=== PATIENT | female | born 1990 | race Caucasian/White ===

== ENCOUNTER 2016-11-10 16:10 | Emergency (ER) | payer OTHER ==
[~2016-11-10] VITALS: Ht 162.6 cm; Wt 83.9 kg
[2016-11-10] MEDS ORDERED: PROCHLORPERAZINE INJ 10 MG/2 ML VIAL IV PUSH STA (16:59)
[2016-11-10] MEDS ORDERED: LACTATED RINGER'S 1000 ML INJ 1,000 ML IV ONE (17:00)
[2016-11-10] MEDS ORDERED: NON-FORMULARY DRUG IM ONE (17:30)
--- NOTE | 2016-11-10 17:51 | PD ---
HPI Chief Complaint Migraine headaches Date Seen: Nov 10, 2016 Time Seen: 16:45 Travel History International Travel<30 Days: No Contact w/Intl Traveler<30Days: No Known Affected Area: No History of Present Illness HPI 7 no 28 weeks and 4 days complains of migraine headaches and chest today. Patient states she's had migraines prior to which was treated effectively with Imitrex. Patient states that during her she has taken Tylenol with good results until today migraines are coming bilateral sensitivity and mild nausea. Para: 0 : 1 History Past Medical History Narrative Medical Surgically hypothyroid Past Surgical History Narrative Surgical Complete thyroidectomy Subdural hematoma at 4 years old with surgical drainage Tonsils and adenoids Allergies-Medications (Allergen,Severity, Reaction): Coded Allergies: Bee Sting (Verified Allergy, Severe, 11/10/16) Lortab (Verified Allergy, Severe, 11/10/16) Neomycin (Verified Allergy, Severe, 11/10/16) Nubain (Verified Allergy, Severe, 11/10/16) Narrative Medication Levothyroxine 75 MCG's daily Protonix 40 mg daily Phenergan and Zantac as necessary, vitamins Review of Systems Except as stated in HPI: all other systems reviewed are Neg Physical Exam Narrative GENERAL: Well-nourished, well-developed patient. SKIN: Warm and dry. HEAD: Normocephalic and atraumatic. EYES: No scleral icterus. No injection or drainage. ENT: No nasal drainage noted. Mucous membranes pink. Airway patent. NECK: Supple, trachea midline. No JVD. CARDIOVASCULAR: Regular rate and rhythm without murmurs, gallops, or rubs. RESPIRATORY: Breath sounds equal bilaterally. No accessory muscle use. BREASTS: Bilateral exam showed no masses , no retractions, no nipple discharge. ABDOMEN/GI: Abdomen soft, non-tender, bowel sounds present, no rebound, no guarding Gravid to [-28] weeks size Fundal Height: [-] GENITOURINARY: External Genitalia: intact and normal in appearance BUS glands: [-nl] cervix not checked Cervix: [-] Dilatation: [-] Effacement: [-] Station: [-] Presentation: [-] Membranes: [intact or ruptured] Uterine Contractions: [-] FHT's: Category: [-1] Baseline: [-140] Reactive: [-mod] Variability: [-mod] Decels: [-absent] EXTREMITIES: No cyanosis or edema. BACK: Nontender without obvious deformity. No CVA tenderness. NEUROLOGICAL: Awake and alert. Motor and sensory grossly within normal limits. Five out of 5 muscle strength in all muscle groups. Normal speech. Patient is much improved after phenergan and IV hydration, desires to go home. Data Data Orders Vital Signs (Adult) .ON ADMISSION (11/10/16 16:59) ^ Labor Status (11/10/16 16:59) Lactated Ringer's 1000 Ml Inj (Lr 1000 M (11/10/16 17:00) Non-Formulary Drug (11/10/16 17:30) MDM Medical Record Reviewed: Yes Plan 28-29 weeks gestation with migraine, improved with hydration and phenergan Discharge home with follow up to OB provider Diagnosis Diagnosis: Primary Impression: 28 weeks gestation of Additional Impression: Migraine headache without aura Disposition: 01 DISCHARGE HOME Cielo Bill MD Nov 10, 2016 17:51
== END 2016-11-10 18:19 | disposition home or self-care (01) ==
LOC: HOBED 16:10
DX: O26.893 Other specified pregnancy related conditions, third trimester (principal); G43.009 Migraine without aura, not intractable, without status migrainosus; Z3A.28 28 weeks gestation of pregnancy
CPT/HCPCS: 99284; J7120

== ENCOUNTER 2016-12-28 00:19 | Inpatient (IN) | payer OTHER ==
[2016-12-28] VITALS (46 sets, daily range): BP systolic 92–151; BP diastolic 54–117; PULSE 72–125; RESP 16–20; TEMP 97.4–98.8
[~2016-12-28] VITALS: Ht 162.6 cm; Wt 87.5 kg
[2016-12-28] MEDS ORDERED: LACTATED RINGER'S 1000 ML INJ 1,000 ML IV PRN (00:53)
[2016-12-28] MEDS ORDERED: SODIUM CHLORID 0.9% 500 ML INJ 500 ML IV PRN (01:00)
[2016-12-28] MEDS ORDERED: MINERAL OIL 10 ML VIAL TOPICAL PRN (01:00)
[2016-12-28] MEDS ORDERED: LIDOCAINE HCL 1% 50 ML VIAL INFIL PRN (01:00)
[2016-12-28] MEDS ORDERED: PENICILLIN G POTASSIUM INJ 5,000,000 UNITS in SODIUM CHLORIDE 0.9% INJ 100 ML IV ONE (01:00)
[2016-12-28] MEDS ORDERED: OXYTOCIN 30 UNITS-500ML PREMIX 500 ML IV SCH ×2 (01:00→12:15)
[2016-12-28] MEDS ORDERED: CITRIC ACID-SODIUM CITRATE LIQ 30 ML UDC PO SCH (01:00)
[2016-12-28] MEDS ORDERED: OXYTOCIN 30 UNITS-500ML PREMIX 500 ML IV ONE ×2 (01:00→12:15)
[2016-12-28] MEDS ORDERED: LIDOCAINE HCL 1% 50 ML VIAL I-DERMAL PRN (01:00)
--- NOTE | 2016-12-28 01:04 | HHI.HP ---
HPI Chief Complaint Water broke Date Seen: Dec 28, 2016 Travel History International Travel<30 Days: No Contact w/Intl Traveler<30Days: No Known Affected Area: No History of Present Illness HPI Patient is 26-year-old white female at 35-1/[address] Choi for care complains of water breaking around 11:00 this evening. The denies bleeding, baby is active, heart rate tracing is reactive and she is scout irregularly and occasionally actually, she is not feeling any contractions this time. Patient has gross ruptured membranes on exam fluid flowing per vagina Para: 0 : 1 History Past Medical History Narrative Medical Patient had a thyroid goiter that enlarged and required thyroidectomy now is hypothyroid and takes replacement Past Surgical History Narrative Surgical Thyroidectomy Social History Alcohol Use: No Tobacco Use: No Substance Abuse: No Allergies-Medications (Allergen,Severity, Reaction): Coded Allergies: Bee Sting (Verified Allergy, Severe, 11/10/16) Lortab (Verified Allergy, Severe, 11/10/16) Neomycin (Verified Allergy, Severe, 11/10/16) Nubain (Verified Allergy, Severe, 11/10/16) Review of Systems General / Constitutional: No: Fever, Weight Gain, Chills, Other Eyes: No: Diploplia, Blurred Vision, Visual changes, Pain, Photophobia HENT: No: Headaches, Vertigo, Lightheadedness Cardiovascular: No: Irregular Rhythm, Chest Pain or Discomfort, Palpitations, Tachycardia, Syncope, Varicosities, Edema, Cyanosis Respiratory: No: Cough, Short of Breath, Other Gastrointestinal: No: Nausea, Vomiting, Diarrhea Genitourinary: No: Decreased Urinary Output, Oliguria Musculoskeletal: No: Limited ROM, Weakness, Cramping, Edema, Pain Skin: No Rash, No Itching, No Dryness, No Lumps, No Change in Pigmentation, No Change in Nails, No Alopecia, No Lesions Neurologic: No: Weakness, Dizziness, Syncope, Focal Abnormalities, Coordination Problem, Headache, Slurred Speech, Seizures Psychiatric: No: Depression, Suicidal Ideations, Homicidal Ideation Endocrine: No: Heat Intolerance, Cold Intolerance, Polydipsia, Polyuria, Other Physical Exam Narrative GENERAL: Well-nourished, well-developed patient. SKIN: Warm and dry. HEAD: Normocephalic and atraumatic. EYES: No scleral icterus. No injection or drainage. ENT: No nasal drainage noted. Mucous membranes pink. Airway patent. NECK: Supple, trachea midline. No JVD. CARDIOVASCULAR: Regular rate and rhythm without murmurs, gallops, or rubs. RESPIRATORY: Breath sounds equal bilaterally. No accessory muscle use. BREASTS: Bilateral exam showed no masses , no retractions, no nipple discharge. ABDOMEN/GI: Abdomen soft, non-tender, bowel sounds present, no rebound, no guarding Gravid to [-35] weeks size Fundal Height: [-35] GENITOURINARY: External Genitalia: intact and normal in appearance BUS glands: [-] Cervix: [Fingertip-] Dilatation: [-] Fingertip Effacement: [-] Thick Station: [-3] Presentation: [-vtx] Membranes: [ ruptured] grossly ruptured Uterine Contractions: [-Occasional] FHT's: Category: [-1] Baseline: [-133] Reactive: [-yes] Variability: [mod-] Decels: [-none] EXTREMITIES: No cyanosis or edema. BACK: Nontender without obvious deformity. No CVA tenderness. NEUROLOGICAL: Awake and alert. Motor and sensory grossly within normal limits. Five out of 5 muscle strength in all muscle groups. Normal speech. Data Data Orders Ob (2e) Additional Admit Info (12/28/16 00:55) Admit To Inpatient (12/28/16 ) Vital Signs (Adult) .Per protocol (12/28/16 00:53) Heart (12/28/16 00:53) Amnioinfusion (12/28/16 00:53) Urinary Catheter Management .ONCE (12/28/16 00:53) Lactated Ringer's 1000 Ml Inj (Lr 1000 M (12/28/16 00:53) Lactated Ringer's 1000 Ml Inj (Lr 1000 M (12/28/16 00:53) Sodium Chlorid 0.9% 500 Ml Inj (Ns 500 M (12/28/16 01:00) Sodium Chlor 0.9% 1000 Ml Inj (Ns 1000 M (12/28/16 01:13) Lidocaine 1% Inj (50 Ml) (Xylocaine 1% I (12/28/16 01:00) Citric Acid-Sodium Citrate Liq (Bicitra (12/28/16 01:00) Fentanyl Inj (Fentanyl Inj) (12/28/16 01:00) Fentanyl Inj (Fentanyl Inj) (12/28/16 01:00) Penicillin G Potassium Inj (Pfizerpen-G (12/28/16 01:00) Penicillin G Potassium Inj (Pfizerpen-G (12/28/16 05:00) Complete Blood Count With Diff (12/28/16 00:53) Hold Clot (12/28/16 00:53) Abo/Rh Blood Type (12/28/16 00:53) Urinalysis - C+S If Indicated (12/28/16 00:53) Type And Screen (12/28/16 00:53) Resp Oxygen Non Rebreathe Mask (12/28/16 ) ^ Epidural / Intrathecal Infus (12/28/16 00:53) Oxytocin 30 Units-500ml Premix (Pitocin (12/28/16 01:00) Lidocaine 1% Inj (50 Ml) (Xylocaine 1% I (12/28/16 01:00) Light Mineral Oil (Muri-Lube Oil) (12/28/16 01:00) ^ Non Stress Test (12/28/16 00:55) Response To Medication .Post New Med Administration, Reaction (12/28/16 00:55) ^ Discontinue Medication (12/28/16 00:55) Oxytocin 30 Units-500ml Premix (Pitocin (12/28/16 01:00) Assessment/Plan Assessment and Plan Patient is 26-year-old white female at 35-36 weeks with gross ruptured membranes , contractions are noted occasionally but patient is not in labor now cervix is fingertip thick and posterior, heart rate tracing is reactive Impression spontaneous ruptured membranes at 35-36 weeks Plan -begin Pitocin of labor augmentation and anticipate vaginal delivery, provide IV penicillin Jose Berg II, MD Dec 28, 2016 01:04
[2016-12-28] MEDS ORDERED: TIRO150C PO (01:06)
[2016-12-28] MEDS ORDERED: PEDI1TAB11 (01:07)
[2016-12-28] MEDS ORDERED: PROT40TA PO (01:10)
[2016-12-28] MEDS ORDERED: SODIUM CHLOR 0.9% 1000 ML INJ 1,000 ML IV PRN (01:13)
[2016-12-28] MEDS: LACTATED RINGER'S 1000 ML INJ 1,000 ML IV SCH ×2 (02:10→05:48)
[2016-12-28 02:20] LABS: BACTERIA, URINE RARE /hpf; BLOOD, URINE NEG (NEG); COMMENT (UR) CULT NOT INDICATED; CULTURE IF INDICATED CULT NOT INDICATED; GLUCOSE,URINE NEG (NEG); KETONE, URINE NEG (NEG); NITRITE,URINE NEG (NEG); PH, URINE 6.5 (5.0-8.5); URINE COLOR YELLOW (YELLW/STRAW)
[2016-12-28 02:28] LABS: AUTOMATED NEUTROPHIL # 11.2 TH/MM3 (1.8-7.7); BASOPHIL # 0.1 TH/MM3 (0-0.2); BASOPHIL % 0.4 % (0.0-2.0); EOSINOPHIL # 0.1 TH/MM3 (0-0.4); EOSINOPHIL % 0.8 % (0.0-4.0); HEMATOCRIT 37.4 % (35.0-46.0); HEMO FLAGS DIFF FINAL; LYMPH % 18.2 % (9.0-44.0); LYMPHOCYTE # 2.8 TH/MM3 (1.0-4.8); MEAN CELL VOLUME 83.7 FL (80.0-100.0); MEAN CORPUSCULAR HEMOGLOBIN 27.5 PG (27.0-34.0); MEAN CORPUSCULAR HGB CONC 32.8 % (32.0-36.0); MONO % 8.5 % (0.0-8.0); NEUT % 72.1 % (16.0-70.0); PLATELET COUNT 244 TH/MM3 (150-450); RED BLOOD COUNT 4.47 MIL/MM3 (4.00-5.30); RED CELL DISTRIBUTION WIDTH 13.5 % (11.6-17.2); WHITE BLOOD COUNT 15.6 TH/MM3 (4.0-11.0)
[2016-12-28] MEDS ORDERED: PENICILLIN G POTASSIUM INJ 2,500,000 UNITS in SODIUM CHLORIDE 0.9% INJ 100 ML IV SCH (05:00)
[2016-12-28] MEDS: PENICILLIN G POTASSIUM INJ 2,500,000 UNITS in SODIUM CHLORIDE 0.9% INJ 100 ML IV SCH ×2 (05:48→10:27)
[2016-12-28] MEDS ORDERED: ePHEDrine/NS 25 MG/5 ML SYR ONE (09:12)
[2016-12-28] MEDS ORDERED: fentaNYL 2MCG-BUPIV 0.125% INJ 100 ML ONE (09:12)
[2016-12-28] MEDS ORDERED: BUPIVACAINE HCL PF 0.25% 10 ML VIAL ONE (10:36)
--- NOTE | 2016-12-28 12:11 | PD.OB.DELI ---
Delivery Date: Dec 28, 2016 Anesthesia: Epidural Episiotomy: None Vaginal Delivery: Normal Presentation: Occiput anterior Nuchal Cord: None Delayed cord clamping (45 sec): Yes Infant: Male One Minute : 7 Five Minute : 8 Placenta: Spontaneous delivery, Intact, 3 vessel cord Laceration: Perineal laceration, 1 deg Estimated blood loss: 350 Additional Information Nice vaginal delivery of luann. Had the cord around the leg and was quite tight Small first degree laceration of the labia in the periclitoral area on the right Mom had Heelp after her delivery and she is concerned. Namrata Choi MD Dec 28, 2016 12:11
[2016-12-28] MEDS ORDERED: SODIUM CHLORIDE 0.9% FLUSH 10 ML FLUSH IV FLUSH PRN (12:15)
[2016-12-28] MEDS ORDERED: ONDANSETRON ODT 4 MG TAB PO PRN (12:15)
[2016-12-28] MEDS ORDERED: ALUMINUM/MAGNESIUM/SIMETH 30 ML CUP PO PRN (12:15)
[2016-12-28] MEDS ORDERED: ZOLPIDEM TARTRATE 5 MG TAB PO PRN (12:15)
[2016-12-28] MEDS ORDERED: ACETAMINOPHEN 325 MG TAB PO PRN (12:15)
[2016-12-28] MEDS ORDERED: BENZOCAINE 20% TOPICAL SPRAY 60 ML CAN TOPICAL PRN (12:15)
[2016-12-28] MEDS ORDERED: oxyCODONE/ACETAMINOPHEN 5 MG/325 MG TAB PO PRN ×2 (12:15)
[2016-12-28] MEDS ORDERED: WITCH HAZEL 50%/GLYCERIN 12.5% 40 PAD JAR TOPICAL PRN (12:15)
[2016-12-28 13:28] LABS: AMPHETAMINE, URINE NEG (NEG); BARBITURATES, URINE NEG (NEG); COCAINE, URINE NEG (NEG)
[2016-12-28 14:00] LABS: HEMATOCRIT 35.9 % (35.0-46.0); MEAN CELL VOLUME 84.1 FL (80.0-100.0); MEAN CORPUSCULAR HEMOGLOBIN 27.5 PG (27.0-34.0); MEAN CORPUSCULAR HGB CONC 32.7 % (32.0-36.0); PLATELET COUNT 228 TH/MM3 (150-450); RED BLOOD COUNT 4.26 MIL/MM3 (4.00-5.30); RED CELL DISTRIBUTION WIDTH 13.6 % (11.6-17.2); REVIEW FLAG FINAL; WHITE BLOOD COUNT 25.8 TH/MM3 (4.0-11.0)
[2016-12-28] MEDS ORDERED: DIPHTH/TETANUS/ACEL PERTUSSIS (BOOSTER) 0.5 ML VIAL/PFS IM ONE (16:00)
[2016-12-28] MEDS ORDERED: MEASLES, MUMPS, RUBELLA VACCINE 0.5 ML VIAL SQ ONE (16:00)
[2016-12-28] MEDS: IBUPROFEN 600 MG TAB PO PRN (16:35)
[2016-12-28] MEDS ORDERED: SODIUM CHLORIDE 0.9% FLUSH 10 ML FLUSH IV FLUSH SCH (21:00)
[2016-12-29] MEDS: IBUPROFEN 600 MG TAB PO PRN ×3 (00:53→19:56)
[2016-12-29] MEDS: DOCUSATE SODIUM 50 MG/SENNA 8.6 MG TAB PO PRN ×2 (00:54→19:56)
[2016-12-29 06:13] LABS: HEMATOCRIT 30.5 % (35.0-46.0); MEAN CELL VOLUME 84.9 FL (80.0-100.0); MEAN CORPUSCULAR HEMOGLOBIN 27.5 PG (27.0-34.0); MEAN CORPUSCULAR HGB CONC 32.4 % (32.0-36.0); PLATELET COUNT 187 TH/MM3 (150-450); RED BLOOD COUNT 3.59 MIL/MM3 (4.00-5.30); RED CELL DISTRIBUTION WIDTH 13.3 % (11.6-17.2); REVIEW FLAG FINAL; WHITE BLOOD COUNT 17.2 TH/MM3 (4.0-11.0)
[2016-12-29 08:30] VITALS: BP 122/72; PULSE 82; RESP 16; TEMP 98
--- NOTE | 2016-12-29 08:59 | HHI.OB ---
Subjective Post Day: 1 Objective Vitals/I&O Vital Signs Date Time Temp Pulse Resp B/P Pulse Ox O2 Delivery O2 Flow Rate FiO2 12/28/16 14:21 96 16 132/81 12/28/16 14:21 98.8 12/28/16 13:45 18 12/28/16 13:42 97.6 12/28/16 13:30 88 116/67 12/28/16 13:15 79 113/70 12/28/16 13:00 84 18 111/68 12/28/16 12:45 75 113/68 12/28/16 12:39 18 12/28/16 12:30 18 12/28/16 12:30 85 111/85 12/28/16 12:15 98.4 18 12/28/16 12:15 91 116/68 12/28/16 12:05 93 151/83 12/28/16 11:05 112 133/117 12/28/16 11:00 85 12/28/16 11:00 91 107/83 12/28/16 10:56 97.4 12/28/16 10:55 90 12/28/16 10:55 89 109/95 12/28/16 10:50 97 137/103 12/28/16 10:46 89 129/69 12/28/16 10:45 104 12/28/16 10:40 87 142/75 12/28/16 10:40 100 12/28/16 10:36 96 140/64 12/28/16 10:35 109 12/28/16 10:30 103 129/58 12/28/16 10:30 90 12/28/16 10:25 104 131/75 12/28/16 10:25 92 12/28/16 10:21 106 123/59 12/28/16 10:20 107 12/28/16 10:15 82 12/28/16 10:15 92 116/78 12/28/16 10:10 100 12/28/16 10:10 79 113/73 12/28/16 10:05 82 123/69 12/28/16 10:05 77 12/28/16 10:00 107 12/28/16 10:00 76 133/81 12/28/16 09:55 125 12/28/16 09:55 72 130/71 12/28/16 09:50 98 125/90 12/28/16 09:30 83 100/54 12/28/16 09:14 20 12/28/16 09:01 72 92/67 Objective Remarks GENERAL: Well-nourished, well-developed patient. CARDIOVASCULAR: Regular rate and rhythm without murmurs, gallops, or rubs. RESPIRATORY: Breath sounds equal bilaterally. No accessory muscle use. ABDOMEN/GI: Abdomen soft, non-tender. Fundus: Firm, non-tender at umbilicus. GENITOURINARY: Light to moderate bleeding. EXTREMITIES: No cyanosis or edema, non-tender, without signs of DVT. Medications and IVs Current Medications Medications (Trade) Dose Ordered Sig/Akira Route Start Time Stop Time Status Last Admin (NS Flush) 2 ml BID IV FLUSH 12/28/16 21:00 (NS Flush) 2 ml UNSCH PRN IV FLUSH 12/28/16 12:15 (Tylenol) 650 mg Q4H PRN PO 12/28/16 12:15 (Motrin) 600 mg Q6H PRN PO 12/28/16 12:15 12/29/16 08:45 (Percocet 5-325 Mg) 1 tab Q4H PRN PO 12/28/16 12:15 (Percocet 5-325 Mg) 2 tab Q4H PRN PO 12/28/16 12:15 (Americaine 20% Top Spr) 1 spray Q4H PRN TOPICAL 12/28/16 12:15 12/28/16 16:35 (Tucks Pads) 1 applic QID PRN TOPICAL 12/28/16 12:15 12/28/16 16:35 (No-Colace) 2 tab Q12H PRN PO 12/28/16 12:15 12/29/16 00:54 (Ambien) 5 mg HS PRN PO 12/28/16 12:15 (Mag-Al Plus Susp Liq) 15 ml Q8H PRN PO 12/28/16 12:15 (Zofran Odt) 4 mg Q6H PRN PO 12/28/16 12:15 Assessment/Plan Problem List: (1) Normal vaginal delivery Plan: routine (2) Anemia Plan: treat pp Assessment and Plan pt doing well up to shower this am c/o back pain, pain medication encouraged routine care Discharge Planning dc home in 1-2 days Jacklyn Horne Dec 29, 2016 08:58
[2016-12-29 23:00] VITALS: BP 117/94; PULSE 94; RESP 18; TEMP 98
[2016-12-30] MEDS: IBUPROFEN 600 MG TAB PO PRN (06:17)
[2016-12-30 09:00] VITALS: BP 108/78; PULSE 77; RESP 16; TEMP 98.8
--- NOTE | 2016-12-30 09:06 | HHI.OB ---
Subjective Post Operative Day: 2 Objective Vitals/I&O Vital Signs Date Time Temp Pulse Resp B/P Pulse Ox O2 Delivery O2 Flow Rate FiO2 12/29/16 23:00 98.0 94 18 117/94 Result Diagram: 12/29/16 0558 Objective Remarks GENERAL: Well-nourished, well-developed patient. CARDIOVASCULAR: Regular rate and rhythm without murmurs, gallops, or rubs. RESPIRATORY: Breath sounds equal bilaterally. No accessory muscle use. ABDOMEN/GI: Abdomen soft, non-tender, bowel sounds present. Incision: Clean, dry and intact. Fundus: Firm, non-tender at umbilicus. GENITOURINARY: Light to moderate bleeding. EXTREMITIES: No cyanosis or edema, non-tender, without signs of DVT. Medications and IVs Current Medications Medications (Trade) Dose Ordered Sig/Akira Route Start Time Stop Time Status Last Admin (NS Flush) 2 ml BID IV FLUSH 12/28/16 21:00 (NS Flush) 2 ml UNSCH PRN IV FLUSH 12/28/16 12:15 (Tylenol) 650 mg Q4H PRN PO 12/28/16 12:15 (Motrin) 600 mg Q6H PRN PO 12/28/16 12:15 12/30/16 06:17 (Percocet 5-325 Mg) 1 tab Q4H PRN PO 12/28/16 12:15 (Percocet 5-325 Mg) 2 tab Q4H PRN PO 12/28/16 12:15 (Americaine 20% Top Spr) 1 spray Q4H PRN TOPICAL 12/28/16 12:15 12/28/16 16:35 (Tucks Pads) 1 applic QID PRN TOPICAL 12/28/16 12:15 12/28/16 16:35 (No-Colace) 2 tab Q12H PRN PO 12/28/16 12:15 12/29/16 19:56 (Ambien) 5 mg HS PRN PO 12/28/16 12:15 (Mag-Al Plus Susp Liq) 15 ml Q8H PRN PO 12/28/16 12:15 (Zofran Odt) 4 mg Q6H PRN PO 12/28/16 12:15 Assessment/Plan Problem List: (1) Normal vaginal delivery Plan: routine (2) Anemia Plan: treat pp Assessment and Plan pt doing well back pain improved pain well controlled with oral pain mediation breast feeding routine care Discharge Planning dc home today Jacklyn Horne Dec 30, 2016 09:06
--- NOTE | 2016-12-30 09:07 | HHI.DCPOC ---
Discharge Care Plan Diagnosis: (1) Normal vaginal delivery (2) Anemia Your Health Problems Are: Vaginal delivery Report Symptoms to Your Doctor -Temperature above 100.5 degrees -Redness, of incision or excessive or foul smelling drainage -Unusual pain or calf pain -Increased vaginal bleeding -Painful or difficulty urinating -Feelings of extreme sadness or anxiety after 2 weeks Goals to Promote Your Health * To prevent worsening of your condition and complications * To maintain your health at the optimal level Directions to Meet Your Goals Take your medications as prescribed Follow your dietary instruction Follow activity as directed Ensure plenty of rest for recovery Drink fluids for hydration Keep your appointments as scheduled Take your immunizations and boosters as scheduled If your symptoms worsen call your PCP, if no PCP go to Urgent Care Center or Emergency Room Smoking is Dangerous to Your Health. Avoid second hand smoke Call the 24-hour crisis hotline for domestic abuse at Jacklyn Horne Dec 30, 2016 09:07
[2016-12-30] MEDS ORDERED: IBUP-232 PO (09:10)
--- NOTE | 2016-12-30 09:13 | HHI.DS ---
Admission Date Dec 28, 2016 at 00:55 Discharge Date: Dec 30, 2016 Admitting Diagnosis 35-36 week srom iup Diagnosis: (1) Normal vaginal delivery Diagnosis: Principal (2) Anemia Diagnosis: Secondary Delivery Date: Dec 28, 2016 Vaginal Delivery: Normal : Male Brief History 35-36 weeks srom clear fluid Hospital Course routine care Pt Condition on Discharge: Good Discharge Disposition: Discharge Home Discharge Instructions Diet Instructions: As Tolerated, No Restrictions Additional Diet Instructions: Drink at least 8 - 16 oz bottles of water a day Activities You Can Perform: Shower Only-No Bath, Sitz Bath Activities to Avoid: Lifting/Bending, Sexual Activity Additional Activity Instruc.: No driving until off pain medications Do not lift anything heavier than your baby in an infant carrier Follow up Referrals: RADIOLOGIC TECH - 2 Weeks @ [facility] New Medications: Ibuprofen (Ibuprofen) 600 Mg Tab 600 MG PO Q6H PRN moderate pain #30 Ref 1 TAB Continued Medications: Levothyroxine (Tirosint) 150 Mcg Cap 175 MCG PO DAILY Thyroid #30 Ref 0 CAP Pantoprazole (Protonix) 40 Mg Tab 40 MG PO DAILY Reflux #30 Ref 0 TAB Pediatric Multivitamin No.29 (Gummies Girls' Multivitamins) 1 Each Tab.Jacklyn Izquierdo Dec 30, 2016 09:13
[2016-12-31 21:10] LABS: BATH SALTS (MDPV) UR NEG (NEG); ECSTASY (MDMA) UR NEG (NEG); HEROIN (6-ACETYLMORPHINE) UR NEG (NEG); K2 SPICE UR NEG (NEG); OBMETHADONE UR NEG (NEG); PHENCYCLIDINE URINE NEG (NEG)
[2016-12-31 21:11] LABS: GABAPENTIN UR NEG (NEG); HYDROMORPHONE U NEG (NEG); OXYCODONE (PERCODAN) NEG (NEG)
== END 2016-12-30 14:17 | disposition home or self-care (01) | DRG 774 ==
LOC: HOBED 00:19 → H2EB 00:55 → H1EA 14:15
PROVIDERS: ADMIT Obstetrics & Gynecology; ATTEND Obstetrics & Gynecology
PROC: 10E0XZZ Delivery of Products of Conception, External Approach (ICD-10-PCS; principal; 2016-12-28)
PROC: 0HQ9XZZ Repair Perineum Skin, External Approach (ICD-10-PCS; 2016-12-28)
PROC: 3E033VJ Introduction of Other Hormone into Peripheral Vein, Percutaneous Approach (ICD-10-PCS; 2016-12-28)
PROC: 3E0S3CZ (ICD-10-PCS; 2016-12-28)
PROC: 00HU33Z Insertion of Infusion Device into Spinal Canal, Percutaneous Approach (ICD-10-PCS; 2016-12-28)
DX: O42.013 Preterm premature rupture of membranes, onset of labor within 24 hours of rupture, third trimester (principal); O90.89 Other complications of the puerperium, not elsewhere classified; E89.0 Postprocedural hypothyroidism; M54.9 Dorsalgia, unspecified; O99.284 Endocrine, nutritional and metabolic diseases complicating childbirth; O70.0 First degree perineal laceration during delivery; O69.2XX0 Labor and delivery complicated by other cord entanglement, with compression, not applicable or unspecified; O99.02 Anemia complicating childbirth; D64.9 Anemia, unspecified; Z37.0 Single live birth; Z3A.35 35 weeks gestation of pregnancy
CPT/HCPCS: 59025; 80307; 81001; 85025; 85027; 86900; 86901; 88307; G0481; J2540; J2590; J3010; J7120